=== PATIENT | male | born 1995 | race Two or more races ===

== ENCOUNTER 2018-05-20 20:35 | Emergency (ER) | payer SELFPAY ==
--- NOTE | 2018-05-20 22:09 | ER Document Report ---
ED ENT - General Chief Complaint: Ear Pain Stated Complaint: EAR PAIN Time Seen by Provider: 05/20/18 21:18 Mode of Arrival: Ambulatory Information source: Patient Notes: Patient is a 22 year old male who presents to the ER today for left ear pain that started today, fullness that started 3 days ago with decreased hearing. Patient does state that he has been swimming in a pool, he states that he has been using Q-tips and [id number] eardrops which has not been helping. Patient denies any fevers or chills. Past Medical History - General Information source: Patient - Social History Smoking Status: Unknown if Ever Smoked Family History: Reviewed & Not Pertinent Review of Systems - Review of Systems Constitutional: No symptoms reported EENT: See HPI Cardiovascular: No symptoms reported Respiratory: No symptoms reported Gastrointestinal: No symptoms reported Genitourinary: No symptoms reported Male Genitourinary: No symptoms reported Musculoskeletal: No symptoms reported Skin: No symptoms reported Hematologic/Lymphatic: No symptoms reported Neurological/Psychological: No symptoms reported Physical Exam - Vital signs Vitals: Temp Pulse Resp BP Pulse Ox 98.9 F 57 L 16 132/65 H 99 05/20/18 20:55 05/20/18 20:55 05/20/18 20:55 05/20/18 20:55 05/20/18 20:55 - Notes Notes: PHYSICAL EXAMINATION: GENERAL: Well-appearing and in no acute distress. HEAD: Atraumatic, normocephalic. EYES: Pupils equal round and reactive to light, extraocular movements intact, sclera anicteric, conjunctiva are normal. ENT: Bilateral ear canals filled with a wall of wax, cannot see past to visualize either TM, left ear tender to otoscope exam, nares patent, oropharynx clear without exudates. Moist mucous membranes. NECK: Normal range of motion, supple without lymphadenopathy LUNGS: CTAB and equal. No wheezes rales or rhonchi. HEART: Regular rate and rhythm without murmurs EXTREMITIES: Normal range of motion, no pitting edema. No cyanosis. NEUROLOGICAL: Cranial nerves grossly intact. Normal sensory/motor exams. PSYCH: Normal mood, normal affect. SKIN: Warm, Dry, normal turgor, no rashes or lesions noted Course - Re-evaluation Re-evalutation: 05/21/18 15:00 Ear irrigation was performed of the left ear although patient has cerumen impaction of both ears. Left ear was feeling and bothering him today. Patient does feel better, ear canal was red and edematous after irrigation, TM looks normal. Will send home with ciprodex ear drops to cover. - Vital Signs Vital signs: Temp Pulse Resp BP Pulse Ox 99.5 F 70 18 117/53 L 100 05/20/18 23:10 05/20/18 23:10 05/20/18 23:10 05/20/18 23:10 05/20/18 23:10 Discharge - Discharge Clinical Impression: Cerumen impaction Qualifiers: Laterality: bilateral Qualified Code(s): H61.23 - Impacted cerumen, bilateral Condition: Stable Disposition: HOME, SELF-CARE Additional Instructions: Return immediately for any new or worsening symptoms. Follow up with primary care provider, call tomorrow to make followup appointment. Forms: Return to Work
[2018-05-20] MEDS ORDERED: CIPROFLOXACIN-HC OTIC SUSP 10 ML AS ONE (22:59)
[2018-05-20] MEDS ORDERED: CIPROFLOXACIN-HC OTIC SUSP 10 ML ONE (23:10)
[2018-05-20 23:58] VITALS: BP 117/53
== END 2018-05-20 23:27 | disposition home or self-care (01) ==
LOC: ER 20:35
DX: H61.23 Impacted cerumen, bilateral (principal); H92.02 Otalgia, left ear
CPT/HCPCS: 99282; J3490